=== PATIENT | female | born 1960 | race Caucasian/White ===

== ENCOUNTER 2018-10-21 10:45 | Inpatient (IN) | payer OTHER ==
[~2018-10-21] VITALS: Ht 160 cm; Wt 83.9 kg
[2018-10-21] MEDS ORDERED: PROGESTERO50 MG/1 ML IM (11:14)
[2018-10-21] MEDS ORDERED: MAGNESIUM250 M1 PO (11:15)
[2018-10-21] MEDS ORDERED: OMEGA-31000 MG PO (11:15)
[2018-10-21] MEDS ORDERED: VITAMIN D400 UNI2 PO (11:15)
== END 2018-10-28 14:38 | disposition home or self-care (01) | DRG 343 ==
LOC: O/R 10-27 06:34 → SURH 10-27 11:00
PROVIDERS: ADMIT Surgery
PROC: 0DTJ4ZZ Resection of Appendix, Percutaneous Endoscopic Approach (ICD-10-PCS; principal; 2018-10-27 11:15)
DX: K36 Other appendicitis (principal); K42.9 Umbilical hernia without obstruction or gangrene